=== PATIENT | female | born 1955 | race African-American/Black ===

== ENCOUNTER 2023-03-21 08:33 | Outpatient (CLI) | payer MEDICARE, MEDICAID, SELFPAY ==
--- NOTE | 2023-03-21 11:15 | NEURO_ITS ---
Impression: # Complains of pain shooting from thumb up arm. # Normal Nerve Conduction Study. # Normal needle/EMG exam including proximal muscles. # Clinical correlation recommended. Nerve Conduction Studies Anti Sensory Summary Table Stim Site NR Peak (ms) P-T Amp (?V) Site1 Site2 Delta-P (ms) Dist (cm) Eric (m/s) Left Median Anti Sensory (2-3nd Digit) Wrist 3.5 50.5 Wrist 2-3nd Digit 3.5 14.0 40 Wrist 3.6 86.7 Wrist 2-3nd Digit 3.5 14.0 40 Left Radial Anti Sensory (Base 1st Digit) Wrist 2.5 35.2 Wrist Base 1st Digit 2.5 0.0 Left Ulnar Anti Sensory (5th Digit) Wrist 2.5 58.4 Wrist 5th Digit 2.5 14.0 56 Motor Summary Table Stim Site NR Onset (ms) O-P Amp (mV) Site1 Site2 Delta-0 (ms) Dist (cm) Eric (m/s) Left Median Motor (Abd Poll Brev) Wrist 3.2 3.4 Elbow Wrist 5.3 28.0 53 Elbow 8.5 2.7 Left Ulnar Motor (Abd Dig Minimi) Wrist 2.9 6.9 A Elbow Wrist 5.3 28.0 53 A Elbow 8.2 5.4 F Wave Studies NR F-Lat (ms) L-R F-Lat (ms) Left Median (Mrkrs) (Abd Poll Brev) 29.16 Left Ulnar (Mrkrs) (Abd Dig Min) 29.65 EMG Side Muscle Nerve Root Ins Act Fibs Amp Dur Recrt Comment Left 1stDorInt Ulnar C8-T1 Nml Nml Nml Nml Nml Left Ext Indicis Radial (Post Int) C7-8 Nml Nml Nml Nml Nml Left Ext Digitorum Radial (Post Int) C7-8 Nml Nml Nml Nml Nml Left BrachioRad Radial C5-6 Nml Nml Nml Nml Nml Left PronatorTeres Median C6-7 Nml Nml Nml Nml Nml Left Abd Poll Brev Median C8-T1 Nml Nml Nml Nml Nml Left Biceps Musculocut C5-6 Nml Nml Nml Nml Nml Left Triceps Radial C6-7-8 Nml Nml Nml Nml Nml Left Deltoid Axillary C5-6 Nml Nml Nml Nml Nml MTDD
== END 2023-03-21 08:34 | disposition home or self-care (01) ==
LOC: ANHNEURO 08:35
PROVIDERS: PCP Internal Medicine; Visit Provider Internal Medicine
DX: R20.2 Paresthesia of skin (principal)
CPT/HCPCS: 95886; 95909